=== PATIENT | female | born 1950 | race Caucasian/White ===

== ENCOUNTER → 2020-08-23 | Outpatient (CLI) | payer MEDICARE ==
[2020-08-27 13:10] LABS: Stool Occult Bld Immuno 1 Positive (NEGATIVE)
== END | disposition home or self-care (01) ==
LOC: LAB SHORT 08:09 → OLS 08:09 → LAB FUT 08-05 14:00
PROVIDERS: Nurse Practitioner Family
DX: Z12.11 Encounter for screening for malignant neoplasm of colon (principal)
CPT/HCPCS: G0328

== ENCOUNTER → 2021-08-23 | Outpatient (CLI) | payer MEDICARE ==
[~2021-08-23] MED LIST: Flonase 0.05% N16 GM; MIRAPEX0.25 M1 PO; PROM25 PO; Prozac20 MG PO; ZEBUTAL 50-3251 EAC1 PO
[2021-08-23 14:14] LABS: Stool Occult Bld Immuno 1 Positive (NEGATIVE)
== END | disposition home or self-care (01) ==
LOC: LAB 10:10 → LAB SHORT 10:10
PROVIDERS: Nurse Practitioner Family
DX: G25.81 Restless legs syndrome (principal); D50.8 Other iron deficiency anemias
CPT/HCPCS: G0328

== ENCOUNTER → 2021-11-02 | Outpatient (CLI) | payer MEDICARE | END | disposition home or self-care (01) | LOC: LAB SHORT 16:59 | DX: E53.8 Deficiency of other specified B group vitamins (principal) | CPT/HCPCS: 82607; 82746 ==

== ENCOUNTER → 2021-12-19 | Outpatient (CLI) | payer MEDICARE ==
[2021-12-19 20:45] LABS: Percent Saturation 38.2 % (15.0-50.0)
== END | disposition home or self-care (01) ==
LOC: LAB SHORT 10:30
PROVIDERS: Internal Medicine Hematology & Oncology
DX: D64.9 Anemia, unspecified (principal)
CPT/HCPCS: 82728; 83540; 83550

== ENCOUNTER 2022-01-17 08:17 | Day surgery (SDC) | payer MEDICARE ==
[~2022-01-17] VITALS: Ht 167.6 cm; Wt 75.8 kg
[~2022-01-17 08:17] MED LIST changes: +ALBU90OI INH; +Aspirin325 MG PO; +CETI5 PO; +MAGCHL64ER PO; +MULVITA PO; +ONDA4ODT MM; +SENNA LAXATIVE8.6 MG PO; +SUMA25 PO
[2022-01-17] MEDS ORDERED: Cymbalta20 MG (09:38)
--- NOTE | 2022-01-17 14:38 | NUR ---
Patient up to Ambulate independently. Gait steady.PT USED RESTROOM WITHOUT DIFFICULTY. Discharge instructions reviewed with patient. Patient verbalizes understanding. Copy given to patient to take home, [facility]. Patient States Post-Procedure ride home has been arranged. Discharged via wheelchair to private car for ride home.
== END 2022-01-17 14:38 | disposition home or self-care (01) ==
LOC: ORSCMMR 08:17 → NM 09:00 → ORSCMMR 09:00
PROVIDERS: Surgery
PROC: 07B50ZX Excision of Right Axillary Lymphatic, Open Approach, Diagnostic (ICD-10-PCS; principal; 2022-01-17 10:00)
PROC: 0HBT0ZZ Excision of Right Breast, Open Approach (ICD-10-PCS; principal; 2022-01-17 10:00)
DX: C50.211 Malignant neoplasm of upper-inner quadrant of right female breast (principal); D36.0 Benign neoplasm of lymph nodes; J45.909 Unspecified asthma, uncomplicated; Z87.891 Personal history of nicotine dependence; F41.8 Other specified anxiety disorders; F43.10 Post-traumatic stress disorder, unspecified; Z79.899 Other long term (current) drug therapy; Z79.82 Long term (current) use of aspirin
CPT/HCPCS: 38792; 76098; 88307; A9270; A9520; J0690; J1100; J1885; J2250; J2405; J2550; J2704; J3010; J7120; Q9968

== ENCOUNTER → 2022-08-23 | Outpatient (CLI) | payer MEDICARE ==
[~2022-08-23] MED LIST changes: +Cymbalta20 MG
[2022-08-23 12:41] LABS: BASOPHILS ABSOLUTE AUTO 0.03 K/mm3 (0.00-0.23); BASOPHILS PERCENT AUTO 1 % (0-2); EOSINOPHILS ABSOLUTE AUTO 0.25 K/mm3 (0.00-0.68); EOSINOPHILS PERCENT AUTO 7 % (0-6); Hematocrit 36.1 % (33.0-51.0); Hemoglobin 12.2 g/dL (11.5-16.0); IMMATURE GRAN PERCENT AUTO 0 % (0-1); LYMPHOCYTES ABSOLUTE AUTO 0.88 K/mm3 (0.84-5.20); LYMPHOCYTES PERCENT AUTO 26 % (21-46); MONOCYTES ABSOLUTE AUTO 0.31 K/mm3 (0.16-1.47); MONOCYTES PERCENT AUTO 9 % (4-13); Mean Corpuscular HGB Conc 33.8 g/dL (31.5-36.5); Mean Corpuscular Volume 95 fL (80-100); Mean Platelet Volume 10.6 fL (9.1-12.4); NEUTROPHILS ABSOLUTE AUTO 1.95 K/mm3 (1.96-9.15); NEUTROPHILS PERCENT AUTO 57 % (41-73); Platelet Count 200 K/mm3 (150-400); RDW Coefficient Variation 12.4 % (11.7-14.2); Red Blood Cell Count 3.81 M/mm3 (3.80-5.20); White Blood Cell Count 3.42 K/mm3 (4.00-11.30)
[2022-08-23 13:32] LABS: Albumin, Blood 3.4 g/dL (3.4-5.0); Albumin/Globulin Ratio 1.4 (0.8-1.8); Bilirubin, Total 0.4 mg/dL (0.1-1.0); Bun/Creatinine Ratio 17.6 (12.0-20.0); Creatinine, Blood 0.74 mg/dL (0.40-1.00); Globulin, Blood 2.4 g/dL (2.2-4.0); Phosphorus, Blood 4.3 mg/dL (2.5-4.9); Potassium, Blood 3.9 mmol/L (3.5-5.5); Total Protein, Blood 5.8 g/dL (6.4-8.2)
== END | disposition home or self-care (01) ==
LOC: LAB 09:59 → LAB SHORT 09:59
PROVIDERS: Internal Medicine Hematology & Oncology
DX: C50.211 Malignant neoplasm of upper-inner quadrant of right female breast (principal); D63.0 Anemia in neoplastic disease
CPT/HCPCS: 80053; 84100; 85025

== ENCOUNTER → 2023-09-27 | Outpatient (CLI) | payer MEDICARE | LOC: LAB SHORT 07:23 → PLD 07:23 | DX: D48.5 Neoplasm of uncertain behavior of skin (principal) | CPT/HCPCS: 88312 ==

== ENCOUNTER 2024-06-16 07:38 | Day surgery (SDC) | payer MEDICARE ==
[~2024-06-16] VITALS: Ht 165.1 cm; Wt 67.4 kg
[~2024-06-16 07:38] MED LIST changes: +Balanced Salt Epinephrine Irrigation Solution 500 mL IR SCH; +Lidocaine HCl/Pf 1% 5 ML VIAL XX SCH; +Moxifloxacin HCL 0.5 MG/0.1 ML 0.4MLSYR RIGHTEYE SCH; +NS 500 ML IV ONE; +PHENYLEPHRINE\\TROPICAMIDE\\TETRACAINE OPHTHALMIC DILATING SOLN RIGHTEYE PRN; +Povidone-Iodine 450 DROP/30 ML Solution ONE; +Povidone-Iodine 450 DROP/30 ML Solution RIGHTEYE SCH; +Tetracaine HCl/Pf 0.5% Opth Soln 4 ml ONE
[2024-06-16] MEDS ORDERED: CYMBALTA30 M2 PO (08:14)
[2024-06-16] MEDS ORDERED: BUTALB-ACETAMI1 EAC5 PO (08:15)
[2024-06-16] MEDS ORDERED: ATOR10 PO (08:16)
[2024-06-16] MEDS ORDERED: NS 500 ML IV ONE (08:17)
[2024-06-16] MEDS ORDERED: triamcinolone aceton (08:17)
[2024-06-16] MEDS ORDERED: NARA2.5 (08:17)
[2024-06-16] MEDS ORDERED: QULIPTA60 MG PO (08:18)
[2024-06-16] MEDS ORDERED: PSEU120ER PO (08:19)
[2024-06-16] MEDS ORDERED: ASCORBIC ACID500 MG PO (08:20)
[2024-06-16] MEDS ORDERED: Vitamin B Comple1 EA (08:22)
[2024-06-16] MEDS ORDERED: ALBU8HFA2 (08:23)
[2024-06-16] MEDS ORDERED: FentaNYL Citrate 50 MCG/ML 2 ML Injection ONE (08:46)
[2024-06-16] MEDS ORDERED: Ondansetron HCl 2 MG / ML 2ML Vial ONE (08:46)
[2024-06-16] MEDS ORDERED: Midazolam HCl 1MG / ML 2ML Vial ONE (08:47)
[2024-06-16] MEDS ORDERED: Tropicamide 1% Opth Soln 15 ML BTL ONE (08:49)
[2024-06-16 09:47] VITALS: BP 108/62
--- NOTE | 2024-06-16 09:49 | NUR ---
06/16/24 0949 Chery Odonnell HAD AN ISSUE WITH [employer] NOT REGISTERING VITALS SO TIME WAS DELAYED IN STEP DOWN.
== END 2024-06-16 09:45 | disposition home or self-care (01) ==
LOC: ORSCSDS 07:38
PROVIDERS: Student in an Organized Health Care Education/Training Program
PROC: 08RJ3JZ Replacement of Right Lens with Synthetic Substitute, Percutaneous Approach (ICD-10-PCS; principal; 2024-06-16 09:00)
DX: H25.813 Combined forms of age-related cataract, bilateral (principal); H25.11 Age-related nuclear cataract, right eye; J45.909 Unspecified asthma, uncomplicated; Z87.891 Personal history of nicotine dependence; F43.10 Post-traumatic stress disorder, unspecified; F32.A Depression, unspecified; F41.9 Anxiety disorder, unspecified; E78.00 Pure hypercholesterolemia, unspecified; Z79.899 Other long term (current) drug therapy
CPT/HCPCS: J2250; J2405; J3010; J7040; V2632

== ENCOUNTER 2024-06-23 07:19 | Day surgery (SDC) | payer MEDICARE ==
[~2024-06-23] VITALS: Ht 165.1 cm; Wt 68.0 kg
[~2024-06-23 07:19] MED LIST changes: +ALBU8HFA2; +ASCORBIC ACID500 MG PO; +ATOR10 PO; +BUTALB-ACETAMI1 EAC5 PO; +CYMBALTA30 M2 PO; +Moxifloxacin HCL 0.5 MG/0.1 ML 0.4MLSYR LEFTEYE SCH; -Moxifloxacin HCL 0.5 MG/0.1 ML 0.4MLSYR RIGHTEYE SCH; +NARA2.5; +PHENYLEPHRINE\\TROPICAMIDE\\TETRACAINE OPHTHALMIC DILATING SOLN LEFTEYE PRN; -PHENYLEPHRINE\\TROPICAMIDE\\TETRACAINE OPHTHALMIC DILATING SOLN RIGHTEYE PRN; +PSEU120ER PO; +Povidone-Iodine 450 DROP/30 ML Solution LEFTEYE SCH; -Povidone-Iodine 450 DROP/30 ML Solution RIGHTEYE SCH; +QULIPTA60 MG PO; +Vitamin B Comple1 EA; +triamcinolone aceton
[2024-06-23] MEDS ORDERED: VITAMIN D3 (08:11)
[2024-06-23] MEDS ORDERED: Midazolam HCl 1MG / ML 2ML Vial ONE (08:22)
[2024-06-23] MEDS ORDERED: FentaNYL Citrate 50 MCG/ML 2 ML Injection ONE (08:22)
[2024-06-23] MEDS ORDERED: NS 500 ML IV ONE ×2 (08:25→08:50)
[2024-06-23 11:05] VITALS: BP 110/64
== END 2024-06-23 09:23 | disposition home or self-care (01) ==
LOC: ORSCSDS 07:19
PROVIDERS: Student in an Organized Health Care Education/Training Program
PROC: 08RK3JZ Replacement of Left Lens with Synthetic Substitute, Percutaneous Approach (ICD-10-PCS; principal; 2024-06-23 09:00)
DX: H25.812 Combined forms of age-related cataract, left eye (principal); Z96.1 Presence of intraocular lens; J45.909 Unspecified asthma, uncomplicated; E78.5 Hyperlipidemia, unspecified; Z87.891 Personal history of nicotine dependence; Z79.82 Long term (current) use of aspirin; Z79.899 Other long term (current) drug therapy
CPT/HCPCS: J2250; J3010; J7040; V2632